=== PATIENT | male | born 2000 | race Caucasian/White ===

== ENCOUNTER 2019-09-03 03:22 | Emergency (ER) | payer SELFPAY ==
[2019-09-03] MEDS ORDERED: CEFAZOLIN 1 GM/D5W RTU 1 GM/50 ML RTUPB IV ONE (03:29)
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
[2019-09-03] MEDS ORDERED: NORMAL SALINE 1000 ML 1,000 ML IV ONE (04:17)
[2019-09-03 04:19] LABS: ANION GAP 15 (5-19); BLOOD UREA NITROGEN 16 mg/dL (7-20); CALCIUM 9.8 mg/dL (8.4-10.2); CARBON DIOXIDE 24 mmol/L (22-30); CHLORIDE 104 mmol/L (98-107); GLUCOSE 105 mg/dL (75-110); POTASSIUM 3.9 mmol/L (3.6-5.0)
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
[2019-09-03 04:35] LABS: ABSOLUTE BASOPHILS # (AUTO) 0.1 10^3/uL (0.0-0.2); ABSOLUTE EOSINOPHILS # (AUTO) 0.4 10^3/uL (0.0-0.6); ABSOLUTE LYMPHOCYTES (AUTO) 4.1 10^3/uL (0.5-4.7); BASOPHILS % (AUTO) 0.5 % (0-2); EOSINOPHILS % (AUTO) 3.4 % (0-6); HEMATOCRIT 46.3 % (37.9-51.0); HEMOGLOBIN 16.1 g/dL (13.5-17.0); LYMPHOCYTES % (AUTO) 32.4 % (13-45); MEAN CORPUSCULAR HEMOGLOBIN 30.6 pg (27.0-33.4); MEAN CORPUSCULAR HGB CONC 34.8 g/dL (32.0-36.0); MEAN CORPUSCULAR VOLUME 88 fl (80-97); MONOCYTES % (AUTO) 7.8 % (3-13); PLATELET COUNT 282 10^3/uL (150-450); RED BLOOD COUNT 5.26 10^6/uL (4.35-5.55); RED CELL DISTRIBUTION WIDTH 13.4 % (11.5-14.0); SEGMENTED NEUTROPHILS % (AUTO) 55.9 % (42-78); TOTAL CELLS COUNTED % (AUTO) 100 %; WHITE BLOOD COUNT 12.6 10^3/uL (4.0-10.5)
[2019-09-03] MEDS ORDERED: ONDANSETRON HCL INJ/PF 4 MG/2 ML SDV IV ONE ×2 (04:45→08:08)
[2019-09-03] MEDS ORDERED: FENTANYL CITRATE INJ/PF 100 MCG/2 ML AMPUL IV ONE (04:45)
[2019-09-03] MEDS ORDERED: MORPHINE SULFATE 10 MG/ML INJ IV ONE (05:57)
[2019-09-03] MEDS ORDERED: NICOTINE 14 MG/24 HR PATCH.TD24 TD ONE (06:02)
[2019-09-03] MEDS ORDERED: HYDROMORPHONE HCL INJ/PF 2 MG/ML AMPULE IV ONE (08:08)
[2019-09-03 08:32] VITALS: BP 127/84
== END 2019-09-03 08:34 | disposition short-term general hospital (02) ==
LOC: ER 03:22 → EEVIPCON 03:22 → ER 08:34
DX: S62.611B Displaced fracture of proximal phalanx of left index finger, initial encounter for open fracture (principal); M79.5 Residual foreign body in soft tissue; S01.03XA Puncture wound without foreign body of scalp, initial encounter; X95.9XXA Assault by unspecified firearm discharge, initial encounter; Y93.89 Activity, other specified; Y92.810 Car as the place of occurrence of the external cause; F17.200 Nicotine dependence, unspecified, uncomplicated; S11.83XA Puncture wound without foreign body of other specified part of neck, initial encounter
CPT/HCPCS: 86900; 86901; 36415; 86850; 85025; 80048; 73130; 70450; 71260; 72125; J0690; J3010; J2270; J1170; J2405; J7030; 96361; 96374; 96375; 99291